=== PATIENT | male | born 1985 | race Caucasian/White ===

== ENCOUNTER 2019-12-07 05:26 | Emergency (ER) | payer MEDICARE ==
[~2019-12-07] VITALS: Ht 167.6 cm; Wt 72.0 kg
[2019-12-07 05:36] VITALS: BP 135/106
--- NOTE | 2019-12-07 05:46 | PHYS DOC ---
Past History Past Medical History: No Pertinent History (KEYLA SHAY DO) Past Surgical History: Other Additional Past Surgical Histo: CYST REMOVAL R WRIST (KEYLA SHAY DO) Alcohol Use: None (KEYLA SHAY DO) General Adult EDM: Chief Complaint: OTHER COMPLAINTS HPI: HPI: 34-year-old male presents with complaints of feeling like there is bugs crawling on his skin. He specifically complains about his right thumb. He states that he has had this feeling on and off in the past. He admits to doing methamphetamines and marijuana last night. He tells me that he has is feeling even when he is sober and thinks there is something wrong. He was given something by IV previously which made it go away. He has no other complaints. (KEYLA SHAY DO) Review of Systems: Review of Systems: Constitutional: Denies fever or chills Eyes: Denies change in visual acuity HENT: Denies nasal congestion or sore throat Respiratory: Denies cough or shortness of breath Cardiovascular: Denies chest pain or edema GI: Denies abdominal pain, nausea, vomiting, bloody stools or diarrhea : Denies dysuria Musculoskeletal: Denies back pain or joint pain Integument: Denies rash Neurologic: Denies headache, focal weakness or sensory changes Endocrine: Denies polyuria or polydipsia Lymphatic: Denies swollen glands Psychiatric: Feeling of bugs crawling under his skin (KEYLA SHAY DO) Heart Score: Risk Factors: Risk Factors: DM, Current or recent (<one month) smoker, HTN, HLP, family history of CAD, obesity. Risk Scores: Score 0 - 3: 2.5% MACE over next 6 weeks - Discharge Home Score 4 - 6: 20.3% MACE over next 6 weeks - Admit for Clinical Observation Score 7 - 10: 72.7% MACE over next 6 weeks - Early Invasive Strategies (KEYLA SHAY DO) Current Medications: Current Meds: Current Medications Medications (Trade) Dose Ordered Sig/Gladis Start Time Stop Time Status Last Admin Dose Admin Lorazepam (Ativan Inj) 2 mg 1X ONCE 12/07/19 05:45 12/07/19 05:46 UNV (KEYLA SHAY DO) Allergies: Allergies: Allergies Coded Allergies Type Severity Reaction Last Updated Verified No Known Drug Allergies 12/07/19 No (KEYAL SHAY DO) Physical Exam: PE: Constitutional: Intoxicated. Well developed, well nourished, no acute distress, non-toxic appearance. [] HENT: Normocephalic, atraumatic, bilateral external ears normal, oropharynx moist, no oral exudates, nose normal. [] Eyes: PERRLA, EOMI, conjunctiva normal, no discharge. [] Neck: Normal range of motion, no tenderness, supple, no stridor. [] Cardiovascular: Heart rate regular rhythm, no murmur [] Lungs & Thorax: Bilateral breath sounds clear to auscultation [] Abdomen: Bowel sounds normal, soft, no tenderness, no masses, no pulsatile masses. [] Skin: Warm, dry, no erythema, no rash. [] Back: No tenderness, no CVA tenderness. [] Extremities: No tenderness, no cyanosis, no clubbing, ROM intact, no edema. [] Neurologic: Alert and oriented X 3, normal motor function, normal sensory function, no focal deficits noted. [] Psychologic: Affect flight of ideas, anxious. [] (KEYLA SHAY DO) PE: Constitutional: Well developed, well nourished, no acute distress, non-toxic appearance HENT: Normocephalic, atraumatic, oropharynx moist Eyes: Conjunctiva normal, no discharge Neck: Normal range of motion, supple Lungs & Thorax: No respiratory distress, equal chest rise and fall Skin: Warm, dry, no erythema, no rash Extremities: No tenderness, ROM intact, no deformity Neurologic: Alert and oriented X 3, speech normal Psychologic: Affect normal (CATHERINE FATIMA DO) Current Patient Data: Vital Signs: Vital Signs Date Time Temp Pulse Resp B/P (MAP) Pulse Ox O2 Delivery O2 Flow Rate FiO2 12/07/19 05:36 97.5 129 20 135/106 (116) 100 Room Air (KEYLA SHAY DO) EKG: EKG: [] (KEYLA SHAY DO) Radiology/Procedures: Radiology/Procedures: [] (KEYLA SHAY DO) Course & Med Decision Making: Course & Med Decision Making Pertinent Labs and Imaging studies reviewed. (See chart for details) The patient's work-up is pending. I have given him 2 mg of Ativan by IV. I am signing the patient out to Dr. Fatima at 0600. He will determine the patient's final disposition. [] (KEYLA SHAY DO) Course & Med Decision Making 0600- Sign out received from Dr. Shay with patient with report of "bug crawling all over him." Hx of recent methamphetamine abuse. Patient previously given Ativan. Labs pending. Patient seen and evaluated by myself. Labs posted to chart. CBC heme concentrated. IVF hydration given. UDS positive for methamphetamines and THC. Patient stable for discharge with outpatient follow-up with PCP. Discussed findings and plan with patient, who acknowledges understanding and agreement. (CATHERINE FATIMA DO) Dragon Disclaimer: Dragon Disclaimer: This electronic medical record was generated, in whole or in part, using a voice recognition dictation system. (KEYLA SHAY DO) Departure Departure: Impression: Primary Impression: Drug use Disposition: HOME/RESIDENCE PRIOR TO ADM Condition: STABLE Referrals: PCP,NO (PCP) Patient Instructions: Alcohol and Drug Addiction, Finding Treatment, Drug Abuse, FAQs, Methamphetamine Abuse, Complications Justification of Admission: Justification of Admission: Justification of Admission Dx: N/A (KEYLA SHAY DO) Justification of Admission Dx: N/A (CATHERINE FATIMA DO) KEYLA SHAY DO Dec 07, 2019 05:46 CATHERINE FATIMA DO Dec 07, 2019 06:13
[2019-12-07] MEDS ORDERED: IV NORMAL SALINE 1,000ML 1,000 ML IV ONE (06:00)
[2019-12-07 06:13] LABS: BASO # 0.1 x10^3/uL (0.0-0.2); BASO % 1 % (0-3); EOS # 0.1 x10^3/uL (0.0-0.7); EOS % 1 % (0-3); HEMATOCRIT 51.4 % (39.0-53.0); HEMOGLOBIN 17.6 g/dL (13.0-17.5); LYMPH # 2.2 x10^3/uL (1.0-4.8); LYMPH % 24 % (24-48); MEAN CORPUSCULAR HEMOGLOBIN 32 pg (25-35); MEAN CORPUSCULAR HGB CONC 34 g/dL (31-37); MEAN CORPUSCULAR VOLUME 92 fL (79-100); MONO # 0.5 x10^3/uL (0.0-1.1); MONO % 6 % (0-9); NEUT # 6.2 x10^3uL (1.8-7.7); NEUT % 68 % (31-73); PLATELET COUNT 217 x10^3/uL (140-400); RED BLOOD COUNT 5.56 x10^6/uL (4.30-5.70); RED CELL DISTRIBUTION WIDTH 12.7 % (11.5-14.5)
[2019-12-07 06:20] LABS: BACTERIA,URINE 0 /HPF (0-FEW); BILIRUBIN,URINE NEG (NEG); CLARITY,URINE CLEAR; COLOR,URINE YELLOW; GLUCOSE,URINE NEG (NEG); NITRITE,URINE NEG (NEG); RBC,URINE OCC /HPF (0-2); SQUAMOUS EPITHELIAL CELL,UR FEW /LPF; UROBILINOGEN,URINE 0.2 mg/dL (0.2 mg/dL); WBC,URINE OCC /HPF (0-4)
[2019-12-07 06:21] LABS: CALCIUM 9.1 mg/dL (8.5-10.1); CREATININE 1.2 mg/dL (0.7-1.3); GFR 69.3; POTASSIUM 3.6 mmol/L (3.5-5.1)
[2019-12-07 06:25] LABS: AMPHETAMINE/METHAMPHETAMINE POS (NEG); BARBITURATES NEG (NEG); BENZODIAZEPINES NEG (NEG); CANNABINOIDS POS (NEG); COCAINE NEG (NEG); METHADONE NEG (NEG); OPIATES NEG (NEG); PHENCYCLIDINE NEG (NEG)
[2019-12-07 06:28] LABS: ALBUMIN/GLOBULIN RATIO 1.2 (1.0-1.7); TOTAL BILIRUBIN 0.9 mg/dL (0.2-1.0); TOTAL PROTEIN 7.4 g/dL (6.4-8.2)
== END 2019-12-07 06:35 | disposition home or self-care (01) ==
LOC: ER 05:26
DX: F15.10 Other stimulant abuse, uncomplicated (principal); F12.10 Cannabis abuse, uncomplicated
CPT/HCPCS: 36415; 80053; 80307; 81001; 85025; 96374; 99283; J2060; J7030

== ENCOUNTER 2019-12-10 00:38 | Emergency (ER) | payer MEDICARE ==
[~2019-12-10] VITALS: Ht 167.6 cm; Wt 72.0 kg
[2019-12-10 00:45] VITALS: BP 139/94
[2019-12-10] MEDS ORDERED: diphenhydrAMINE HCL 25 MG CAPSULE PO ONE (02:00)
--- NOTE | 2019-12-10 02:21 | PHYS DOC ---
Past History Past Medical History: No Pertinent History Past Surgical History: Other Additional Past Surgical Histo: CYST REMOVAL R WRIST Additional Smoking Information: 2 pks daily Alcohol Use: None General Adult EDM: Chief Complaint: ELBOW PROBLEM HPI: HPI: 34-year-old male returns the emergency room complaining of left elbow pain. The patient was seen recently by myself in the emergency room complaining of bugs crawling on his skin. He tells me that he still feels like something is trying to come out of his skin. It is centered around his left elbow. He did state that he fell recently, but does not think that is it. Patient was positive for methamphetamines when I saw him 2 days ago. Most of what he tells me does not make sense.] Review of Systems: Review of Systems: Constitutional: Denies fever or chills Eyes: Denies change in visual acuity HENT: Denies nasal congestion or sore throat Respiratory: Denies cough or shortness of breath Cardiovascular: Denies chest pain or edema GI: Denies abdominal pain, nausea, vomiting, bloody stools or diarrhea : Denies dysuria Musculoskeletal: Left elbow pain Integument: Denies rash Neurologic: Denies headache, focal weakness or sensory changes Endocrine: Denies polyuria or polydipsia Lymphatic: Denies swollen glands Psychiatric: Denies depression or anxiety Heart Score: Risk Factors: Risk Factors: DM, Current or recent (<one month) smoker, HTN, HLP, family history of CAD, obesity. Risk Scores: Score 0 - 3: 2.5% MACE over next 6 weeks - Discharge Home Score 4 - 6: 20.3% MACE over next 6 weeks - Admit for Clinical Observation Score 7 - 10: 72.7% MACE over next 6 weeks - Early Invasive Strategies Current Medications: Current Meds: Current Medications Medications (Trade) Dose Ordered Sig/Gladis Start Time Stop Time Status Last Admin Dose Admin Diphenhydramine HCl (Benadryl) 50 mg 1X ONCE 12/10/19 02:00 12/10/19 02:01 DC 12/10/19 02:06 50 MG Allergies: Allergies: Allergies Coded Allergies Type Severity Reaction Last Updated Verified No Known Drug Allergies 12/07/19 No Physical Exam: PE: Constitutional: Well developed, well nourished, no acute distress, non-toxic ap pearance. [] HENT: Normocephalic, atraumatic, bilateral external ears normal, oropharynx moist, no oral exudates, nose normal. [] Eyes: PERRLA, EOMI, conjunctiva normal, no discharge. [] Neck: Normal range of motion, no tenderness, supple, no stridor. [] Cardiovascular:Heart rate regular rhythm, no murmur [] Lungs & Thorax: Bilateral breath sounds clear to auscultation [] Abdomen: Bowel sounds normal, soft, no tenderness, no masses, no pulsatile masses. [] Skin: Warm, dry, no erythema, no rash. [] Back: No tenderness, no CVA tenderness. [] Extremities: Tenderness of the left elbow, patient not cooperative with exam. [] Neurologic: Alert and oriented X 3, normal motor function, normal sensory function, no focal deficits noted. [] Psychologic: Affect normal, judgement normal, mood normal. [] Current Patient Data: Vital Signs: Vital Signs Date Time Temp Pulse Resp B/P (MAP) Pulse Ox O2 Delivery O2 Flow Rate FiO2 12/10/19 00:45 97.6 123 20 139/94 (109) 98 Room Air EKG: EKG: [] Radiology/Procedures: Radiology/Procedures: [] Course & Med Decision Making: Course & Med Decision Making Pertinent Labs and Imaging studies reviewed. (See chart for details) The patient's x-ray is unremarkable. I will see any signs of insects on his skin or other disruption of his skin. I believe this is all drug related. He is stable for discharge at this time. [] Dragon Disclaimer: Dragon Disclaimer: This electronic medical record was generated, in whole or in part, using a voice recognition dictation system. Departure Departure: Impression: Primary Impression: Drug use Disposition: HOME/RESIDENCE PRIOR TO ADM Condition: STABLE Referrals: PCP,NO (PCP) Patient Instructions: Alcohol and Drug Addiction, Finding Treatment Justification of Admission: Justification of Admission: Justification of Admission Dx: N/A KEYLA SHAY DO Dec 10, 2019 02:21
--- NOTE | 2019-12-10 03:42 | RAD ---
PROCEDURE: ELBOW LEFT 3V STUDY DATE: 12/10/2019 CLINICAL INDICATION / HISTORY: Left elbow pain after recent fall. TECHNIQUE: Left Elbow 3 views COMPARISON: None FINDINGS: 3 views left elbow show anatomic alignment but cortical irregularity at the radial neck suspicious for nondisplaced mild impaction fracture. Soft tissues show evidence of an elbow joint effusion with an anterior fat pad sign. IMPRESSION: Findings suspicious for an acute impaction fracture of the radial neck with no significant displacement or dislocation. Electronically signed by: Suzy Stovall MD (12/10/2019 3:39 AM) [facility] [place]
== END 2019-12-10 03:25 | disposition home or self-care (01) ==
LOC: ER 00:38
DX: F15.10 Other stimulant abuse, uncomplicated (principal); F17.200 Nicotine dependence, unspecified, uncomplicated; M25.522 Pain in left elbow
CPT/HCPCS: 73080; 99283; Q0163

== ENCOUNTER 2020-01-24 22:47 | Emergency (ER) | payer MEDICARE ==
[~2020-01-24] VITALS: Ht 167.6 cm; Wt 76.0 kg
--- NOTE | 2020-01-24 22:59 | PHYS DOC ---
Past History Past Medical History: No Pertinent History Past Surgical History: Other Additional Past Surgical Histo: CYST REMOVAL R WRIST Alcohol Use: None Drug Use: Marijuana, Methamphetamine Adult General Chief Complaint Chief Complaint: DRUG ABUSE HPI HPI Patient is a 34-year-old male who presents for " bugs crawling out of my skin". Reports this is been going on for the past 2 years. Has been here twice in November with similar presenting symptoms, had extensive work-up and determined to be methamphetamine related at that time. Patient reports no change in symptomology since last visit. Reports ongoing marijuana and methamphetamine use with last use of both reported earlier today. Patient has no other symptoms at this time Review of Systems Review of Systems Fourteen body systems of review of systems have been reviewed. See HPI for pertinent positives and negative responses, other [place] all other systems are negative, non-pertinent or non-contributory Allergies Allergies Allergies Coded Allergies Type Severity Reaction Last Updated Verified No Known Drug Allergies 12/07/19 No Physical Exam Physical Exam Constitutional: Well developed, well nourished, no acute distress, non-toxic a ppearance. Appears acutely intoxicated on meth HENT: Normocephalic, atraumatic, bilateral external ears normal, oropharynx mois t, no oral exudates, nose normal. Eyes: PERRLA, EOMI, conjunctiva normal, no discharge. Neck: Normal range of motion, no tenderness, supple, no stridor. Cardiovascular: Heart rate regular, sinus rhythm, no murmurs rubs or gallops Lungs & Thorax: Bilateral breath sounds clear to auscultation Abdomen: Bowel sounds normal, soft, no tenderness, no masses, no pulsatile masses. Nonsurgical abdomen, no peritoneal signs Skin: Warm, dry, no erythema, no rash. Back: No tenderness, no CVA tenderness. Extremities: No tenderness, no cyanosis, no clubbing, ROM intact, trace pedal edema appreciated. Neurologic: Alert and oriented X 3, grossly normal motor & sensory function, no focal deficits noted. Psychologic: Pressured speech, mood appropriate for situation, difficult to fully assess as patient is acutely intoxicated on methamphetamine EKG EKG [] Radiology/Procedures Radiology/Procedures [] Course & Med Decision Making Course & Med Decision Making Ambulatory patient seen on immediate ER arrival Comprehensive history and physical exam obtained after reviewing prior visits notes and work-up I discussed most likely diagnosis of methamphetamine induced paresthesias given benign physical exam findings and history of methamphetamine use today Patient does not have PCP, I stressed importance for patient to follow-up in upcoming 1 to 2 weeks to establish care Also discussed marijuana and methamphetamine cessation, patient unwilling to quit at this time Ultimately, although patient is intoxicated he is able to care for self. He is safe for discharge home at this time Strict return precautions discussed, all questions and concerns addressed prior to ER departure in stable condition Dragon Disclaimer Dragon Disclaimer This electronic medical record was generated, in whole or in part, using a voice recognition dictation system. Departure Departure: Impression: Primary Impression: Methamphetamine dependence Disposition: HOME/RESIDENCE PRIOR TO ADM Condition: STABLE Referrals: PCP,NO (PCP) Patient Instructions: Methamphetamine Abuse, Complications Justification of Admission: Justification of Admission: Justification of Admission Dx: N/A NIDIA LAZO DO Jan 24, 2020 22:59
[2020-01-24 23:03] VITALS: BP 155/82
== END 2020-01-24 23:24 | disposition home or self-care (01) ==
LOC: ER 22:47
DX: F15.20 Other stimulant dependence, uncomplicated (principal); F12.10 Cannabis abuse, uncomplicated
CPT/HCPCS: 99281

== ENCOUNTER 2020-02-20 04:44 | Emergency (ER) | payer MEDICARE ==
[~2020-02-20] VITALS: Ht 167.6 cm; Wt 77.7 kg
[2020-02-20 04:44] VITALS: BP 151/83
--- NOTE | 2020-02-20 04:49 | PHYS DOC ---
Past History Past Medical History: No Pertinent History Past Surgical History: Other Additional Past Surgical Histo: CYST REMOVAL R WRIST Alcohol Use: None Drug Use: Marijuana, Methamphetamine General Adult HPI: HPI: ". I got bad dental pain.. had it for months now.. and some time I got bugs.. " Patient is a 34 year old male who presents with above hx and complaints dental pain with insect bites. Patient localizes pain in area of teeth 6 and 7. Has areas of other dental decay. No trismus. Denies immunosuppression. No history of travel. No history of ill contacts. Patient has previous history of traumatic brain injury at age 6 which is caused him to have mental problems. Patient does not follow-up primary care regularly. Patient currently cannot show any insect bites. But states he feels like sometimes he has insect bites. Pt. admits to recreational illicit drug use. Review of Systems: Review of Systems: Constitutional: Denies fever or chills Eyes: Denies change in visual acuity HENT: Complaints of dental pain Respiratory: Denies cough or shortness of breath Cardiovascular: Denies chest pain or edema GI: Denies abdominal pain, nausea, vomiting, bloody stools or diarrhea : Denies dysuria Musculoskeletal: Denies back pain or joint pain Integument: Denies rash. Has complaints of skin crawling like it has bugs . Neurologic: Denies headache, focal weakness or sensory changes Endocrine: Denies polyuria or polydipsia Lymphatic: Denies swollen glands Psychiatric: Denies depression or anxiety Heart Score: Risk Factors: Risk Factors: DM, Current or recent (<one month) smoker, HTN, HLP, family history of CAD, obesity. Risk Scores: Score 0 - 3: 2.5% MACE over next 6 weeks - Discharge Home Score 4 - 6: 20.3% MACE over next 6 weeks - Admit for Clinical Observation Score 7 - 10: 72.7% MACE over next 6 weeks - Early Invasive Strategies Family History: Family History: Noncontributory Current Medications: Current Meds: See nursing for home meds Allergies: Allergies: Allergies Coded Allergies Type Severity Reaction Last Updated Verified No Known Drug Allergies 12/07/19 No Physical Exam: PE: Constitutional:, no acute distress, non-toxic appearance. [] HENT: Normocephalic, atraumatic, bilateral external ears normal, oropharynx moist, no oral exudates, nose normal. Multiple areas of decay and gingivitis localized pain in area of teeth 6 and 7. No pointing abscess Eyes: PERRLA, EOMI, conjunctiva normal, no discharge. [] Neck: Normal range of motion, no tenderness, supple, no stridor. [] Cardiovascular:Heart rate regular rhythm, no murmur [] Lungs & Thorax: Bilateral breath sounds equal apex with scattered wheezes auscultation [] Abdomen: Bowel sounds normal, soft, no tenderness, no masses, no pulsatile masses. [] Skin: Warm, dry, no erythema, no rash. No bugs noted on skin Back: No tenderness, no CVA tenderness. [] Extremities: No tenderness, no cyanosis, no clubbing, ROM intact, no edema. [] Neurologic: Alert and oriented X 3, normal motor function, normal sensory function, no focal deficits noted. [] Psychologic: Affect anxious, judgement normal, mood normal. [] EKG: EKG: [] Radiology/Procedures: Radiology/Procedures: [] Course & Med Decision Making: Course & Med Decision Making Pertinent Labs and Imaging studies reviewed. (See chart for details) Patient is a rinse mouth with peroxide or Listerine 4 times a day. Patient take Tylenol and ibuprofen for discomfort. Patient take Keflex 500 mg 3 times a day. Patient must see a dentist. Patient encouraged to avoid illicit drug use. Patient encouraged to stop smoking. Must follow-up with primary care. Impression: 1. Dental caries 2. Dental pain area of teeth 6 and 7 3. History of polysubstance abuse 4. Tobacco use 5. History of traumatic brain injury age 6 [] Dragon Disclaimer: Dragjessica Disclaimer: This electronic medical record was generated, in whole or in part, using a voice recognition dictation system. Departure Departure: Disposition: HOME/RESIDENCE PRIOR TO ADM Condition: STABLE Referrals: PCP,NO (PCP) Scripts Cephalexin (KEFLEX) 500 Mg Capsule 500 MG PO TID for dental infection for 7 Days, BOT Prov: MARNI LANE MD 02/20/20 Mac Disclaimer This chart was dictated in whole or in part using Voice Recognition software in a busy, high-work load, and often noisy Emergency Department environment. It may contain unintended and wholly unrecognized errors or omissions. MARNI LANE MD Feb 20, 2020 04:49
[2020-02-20] MEDS ORDERED: CEPH-264 PO (05:08)
[2020-02-20] MEDS ORDERED: IBUPROFEN 400 MG TABLET. PO ONE (05:15)
[2020-02-20] MEDS ORDERED: CEPHALEXIN 250 MG CAPSULE PO ONE (05:15)
== END 2020-02-20 05:41 | disposition home or self-care (01) ==
LOC: ER 04:44
DX: K02.9 Dental caries, unspecified (principal); F19.10 Other psychoactive substance abuse, uncomplicated; K05.10 Chronic gingivitis, plaque induced; F12.10 Cannabis abuse, uncomplicated; F15.10 Other stimulant abuse, uncomplicated; Z87.820 Personal history of traumatic brain injury
CPT/HCPCS: 99283

== ENCOUNTER 2020-06-29 19:33 | Emergency (ER) | payer MEDICARE ==
[~2020-06-29] VITALS: Ht 167.6 cm; Wt 79.3 kg
[~2020-06-29 19:33] MED LIST: CEPH-264 PO
--- NOTE | 2020-06-29 19:36 | PHYS DOC ---
Past History Past Medical History: No Pertinent History Past Medical History MRSA, probably substance abuse, cellulitis, dental decay, Past Surgical History: Other Additional Past Surgical Histo: cyst on arm Smoking: Cigarettes Alcohol Use: None Drug Use: Marijuana, Methamphetamine General Adult HPI: HPI: ".. I got these lesions all over my body.. I ve been here before.. for them.. I did do about $10. worth of meth about a hour ago.. that makes the lesions itch .. more..." Patient is a 34 year old male who presents with above hx and complaints genera lized lesions of skin. Patient does have a past medical history of MRSA. Patient has a dependency on methamphetamine. He uses primarily by smoking it or snorting. Patient past has shot up with it however currently states use was bit by smoking. Last used methamphetamines approximate hour for arrival. Patient used approximately $10 hit of methamphetamine. Patient use of methamphetamine is anywhere from $20-$100 worth of methamphetamine a day. No recent travel. No severe ill contacts. No history immunosuppression or HIV. Patient has a habit of picking at skin lesions. Which is obvious on examination of patient. Patient said at least 4 visits since 2019 for polysubstance abuse and meth side effects. Patient declines any interest and drug rehab program. Last visit on January 24, 2020 patient present with similar type presentation and complaining of" bugs crawling out of his skin." Review of Systems: Review of Systems: Constitutional: Denies fever or chills Eyes: Denies change in visual acuity HENT: Denies nasal congestion or sore throat Respiratory: Denies cough or shortness of breath Cardiovascular: Denies chest pain or edema GI: Denies abdominal pain, nausea, vomiting, bloody stools or diarrhea : Denies dysuria Musculoskeletal: Denies back pain or joint pain Integument: Complains of multiple skin lesions Neurologic: Denies headache, focal weakness or sensory changes Endocrine: Denies polyuria or polydipsia Lymphatic: Denies swollen glands Psychiatric: Denies depression or anxiety Family History: Family History: Noncontributory to presentation Current Medications: Current Meds: See nursing for home meds Allergies: Allergies: Allergies Coded Allergies Type Severity Reaction Last Updated Verified No Known Drug Allergies 12/07/19 No Physical Exam: PE: Constitutional: Moderate acute distress, non-toxic appearance. [] HENT: Normocephalic, atraumatic, bilateral external ears normal, oropharynx moist, no oral exudates, nose normal. [Multiple areas of dental decay-(meth mouth) Eyes: PERRLA, EOMI, conjunctiva normal, no discharge. [] Neck: Normal range of motion, no tenderness, supple, no stridor. [] Cardiovascular: Tachycardia heart rate regular rhythm, no murmur [], hypertensive by monitor Lungs & Thorax: Bilateral breath sounds equal apex with scattered wheezes on auscultation [] Abdomen: Bowel sounds normal, soft, no tenderness, no masses, no pulsatile masses. Circumcised male testicles descended. Skin: Warm, dry, no erythema, multiple areas of skin lesions that he has picked at. No striations. Localized cellulitis at sites of picking and skin erosion. Back: No tenderness, no CVA tenderness. [] Extremities: No tenderness, no cyanosis, no clubbing, ROM intact, no edema. [] No adenopathy at angle groin or axillary. Neurologic: Alert and oriented X 3, normal motor function, normal sensory function, no focal deficits noted. [] Psychologic: Affect anxious, agitated, judgement normal, mood normal. [] EKG: EKG: [] Radiology/Procedures: Radiology/Procedures: [] Heart Score: Risk Factors: Risk Factors: DM, Current or recent (<one month) smoker, HTN, HLP, family history of CAD, obesity. Risk Scores: Score 0 - 3: 2.5% MACE over next 6 weeks - Discharge Home Score 4 - 6: 20.3% MACE over next 6 weeks - Admit for Clinical Observation Score 7 - 10: 72.7% MACE over next 6 weeks - Early Invasive Strategies Course & Med Decision Making: Course & Med Decision Making Pertinent Labs and Imaging studies reviewed. (See chart for details) Patient use salt water compresses worse Epson salt water compresses 4 times a day 8 to lesions. After removing the compresses soaks. Massage and Polysporin 4 times a day. Take Bactrim DS twice a day. Follow-up primary care. Encourage patient patient to stop smoking. Encourage patient stop methamphetamine use. Encourage patient follow-up with counseling center. Patient's tetanus was updated. Patient advised he feels the urge to pick at scabs, to massage the area with Polysporin. Impression: 1. Multiple areas of dental decay- ( Meth Mouth) 2. Cellulitis-(multiple areas of localized lesions-skin picking) 3. History of polysubstance abuse 4. Admits to chronic methamphetamine abuse. [] Dragon Disclaimer: Dragon Disclaimer: This electronic medical record was generated, in whole or in part, using a voice recognition dictation system. Departure Departure: Referrals: PCP,NO (PCP) Scripts Sulfamethoxazole/Trimethoprim (BACTRIM DS TABLET) 1 Each Tablet 1 TAB PO BID for cellitis for 10 Days, #20 TAB 0 Refills Prov: MARNI LANE MD 06/29/20 Mac Disclaimer This chart was dictated in whole or in part using Voice Recognition software in a busy, high-work load, and often noisy Emergency Department environment. It may contain unintended and wholly unrecognized errors or omissions. MARNI LANE MD Jun 29, 2020 19:36
[2020-06-29] MEDS ORDERED: SMZ/TMP 800/160MG TABLET. PO ONE (19:45)
[2020-06-29] MEDS ORDERED: SULF1TAB24 PO (19:48)
[2020-06-29] MEDS ORDERED: TETANUS AND DIPHTHERIA TOX/PF 0.5 ML VIAL. VAX IM ONE (20:15)
[2020-06-29 20:29] VITALS: BP 144/92
== END 2020-06-29 20:32 | disposition home or self-care (01) ==
LOC: ER 19:33
DX: L03.818 Cellulitis of other sites (principal); K02.9 Dental caries, unspecified; F15.10 Other stimulant abuse, uncomplicated; F19.10 Other psychoactive substance abuse, uncomplicated; F17.210 Nicotine dependence, cigarettes, uncomplicated; F12.10 Cannabis abuse, uncomplicated; Z86.14 Personal history of Methicillin resistant Staphylococcus aureus infection
CPT/HCPCS: 90471; 90714; 99283

== ENCOUNTER 2020-08-11 14:54 | Emergency (ER) | payer MEDICARE, OTHER ==
[~2020-08-11] VITALS: Ht 167.6 cm; Wt 79.0 kg
[~2020-08-11 14:54] MED LIST changes: +SULF1TAB24 PO
[2020-08-11] MEDS ORDERED: IV NORMAL SALINE 1,000ML 1,000 ML IV ONE (15:30)
--- NOTE | 2020-08-11 15:57 | RAD ---
CT of the C-spine without contrast. HISTORY: Neck pain after twisting trauma Axial CT images were obtained through the cervical spine. Sagittal and coronal reconstructed images w ere reviewed. An acute C-spine fracture is not identified. There is mild bulging of the disc centrall y at C3-4. There is mild left-sided spurring at C4-5. There is a small left disc bulge or protrusion with spurring on the left at C5-6. C-spine is in normal alignment. Disc spaces are normal in height. Foramina are patent. There is mild facet arthritis at C2-3 on the right. IMPRESSION: 1. Mild central disc bulge C3-4. 2. Mild left-sided spurring at C4-5. 3. Small disc bulge or protrusion and spurring on the left at C5-6. 4. No acute C-spine fracture. PQRS Compliance Statement: One or more of the following individualized dose reduction techniques were utilized for this examinat ion: 1. Automated exposure control 2. Adjustment of the mA and/or kV according to patient size 3. Use of iterative reconstruction technique Electronically signed by: Bossman Lam MD (08/11/2020 3:55 PM) [facility]
[2020-08-11 16:18] LABS: BASO # 0.1 x10^3/uL (0.0-0.2); BASO % 1 % (0-3); EOS # 0.1 x10^3/uL (0.0-0.7); EOS % 1 % (0-3); HEMATOCRIT 48.1 % (39.0-53.0); HEMOGLOBIN 16.2 g/dL (13.0-17.5); LYMPH % 23 % (24-48); MEAN CORPUSCULAR HEMOGLOBIN 31 pg (25-35); MEAN CORPUSCULAR HGB CONC 34 g/dL (31-37); MEAN CORPUSCULAR VOLUME 93 fL (79-100); MONO # 0.8 x10^3/uL (0.0-1.1); MONO % 10 % (0-9); NEUT # 5.7 x10^3uL (1.8-7.7); NEUT % 66 % (31-73); PLATELET COUNT 216 x10^3/uL (140-400); WHITE BLOOD COUNT 8.6 x10^3/uL (4.0-11.0)
[2020-08-11 16:20] LABS: CALCIUM 9.3 mg/dL (8.5-10.1); GFR 85.5; POTASSIUM 3.8 mmol/L (3.5-5.1)
[2020-08-11 16:50] VITALS: BP 133/83
[2020-08-11 16:55] LABS: ALBUMIN 4.2 g/dL (3.4-5.0); ALBUMIN/GLOBULIN RATIO 1.4 (1.0-1.7); TOTAL BILIRUBIN 2.4 mg/dL (0.2-1.0); TOTAL PROTEIN 7.3 g/dL (6.4-8.2)
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
--- NOTE | 2020-08-12 08:55 | EKG ---
[address] [address] Test Date: 2020-08-11 Test Time: 15:33:35 Pat Name: MALACHI MICHAELS Department: Room: Gender: M Graphic Coordinator: GERSON : 1985 Requested By: CATHERINE FREY Order Number: [id number] Reading MD: Measurements Intervals [place] Rate: 102 P: 66 ND: 130 QRS: 28 QRSD: 86 T: 29 QT: 340 QTc: 447 Interpretive Statements SINUS TACHYCARDIA OTHERWISE NORMAL ECG RI6.02 No previous ECG available for comparison
== END 2020-08-11 17:08 | disposition home or self-care (01) ==
LOC: ER 14:54
DX: S16.1XXA Strain of muscle, fascia and tendon at neck level, initial encounter (principal); M79.602 Pain in left arm; F15.10 Other stimulant abuse, uncomplicated; M48.8X9 Other specified spondylopathies, site unspecified; F17.210 Nicotine dependence, cigarettes, uncomplicated; X50.9XXA Other and unspecified overexertion or strenuous movements or postures, initial encounter; Y93.89 Activity, other specified; Y92.89 Other specified places as the place of occurrence of the external cause; Y99.8 Other external cause status
CPT/HCPCS: 36415; 72125; 80053; 82553; 84484; 85025; 93005; 96360; 96361; 99285; J7030